=== PATIENT | male | born 1990 | race Two or more races ===

== ENCOUNTER → 2024-12-11 | Outpatient (CLI) | payer OTHER ==
--- NOTE | 2024-12-11 16:41 | HMCSR ---
APPROVED REPORT EXAM: Two-dimensional and M-mode echocardiogram with Doppler and color Doppler. 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 2D Dimensions RVDd3.8 cmLVEF(%)80.4 (>50%)LVED Vol(simp.)81.0 mL IVSd2.1 (0.7-1.1cm)FS(%)49 %LVES Vol(simp.)25.0 mL LVDd4.1 (3.8-5.6cm)LA (2D)3.7 (1.6-4.0cm)LVEF(%, simp.)70 % PWd1.3 (0.7-1.1cm)Ao Root(2D)3.7 (2.0-3.7cm)LA ESV INDEX (BP)40.36 mL/m2 IVSs2.4 cmLVOT diam2.3 (1.8-2.4cm) LVDs2.1 (2.5-4.0cm)IVC diam1.5 cm PWs1.8 cm M-Mode Dimensions EPSS0.3 cm LA (MM)4.4 (1.6-4.0cm) Ao Root(MM)3.0 (2.0-3.7cm) Aortic Valve AoV Vmax1.4 m/Awilda Peak GR7.6 mmHgLVOT Vmax1.3 m/s AoV VTI0.2 mAo Mean GR4.9 mmHgLVOT VTI0.23 m ELI (VMAX)3.82 cm2AVA (VTI) 3.8 cm2 Mitral Valve MV E Vmax53.1 cm/sDECEL Wcnl769 ms MV A Vmax30.6 cm/sP 1/2 T57 ms E/A ratio1.7MVA (PHT)3.9 cm2 TDI E/E' Medial7.8E/E' Lateral7.1 Medial E' Peak V6.79 cm/sLateral E' Peak V7.43 cm/s Pulmonary Valve PV Vmax1.1 m/sPV VTI0.21 mPV Mean GR2.7 mmHg PV Peak GR4.9 mmHgPI End Ce. Willi 92.8 cm/s Tricuspid Valve TR Vmax1.9 m/sRVSP14.5 mmHg TR Peak GR15.2 mmHg Left Ventricle The left ventricle is normal size. There is normal LV segmental wall motion. Severe concentric left v entricular hypertrophy. The LVEF is > 65%. Indeterminate diastolic dysfunction. Right Ventricle The right ventricle is normal size. The right ventricular systolic function is normal. Atria The left atrium is mildly dilated. Cannot exclude PFO by color doppler. The right atrium size is norm al. Aortic Valve The aortic valve is normal in structure. No aortic regurgitation is present. There is no aortic valvu lar stenosis. Mitral Valve The mitral valve is normal in structure and function. There is trace of mitral valve regurgitation no alena. There is no mitral valve stenosis. Tricuspid Valve The tricuspid valve is normal in structure. There is mild of tricuspid valve regurgitation noted. Pulmonic Valve Pulmonic valve is not well visualized. There is trace of pulmonic valvular regurgitation. Great Vessels The aortic root is normal in size. The IVC is normal in size and collapses >50% with inspiration. Pericardium There is no pericardial effusion. Other Information Quality : Adequate Conclusion The left ventricle is normal size. The LVEF is > 65% with normal LV segmental wall motion. Severe concentric left ventricular hypertrophy. Indeterminate diastolic dysfunction. The right ventricular systolic function is normal. The left atrium is mildly dilated. No hemodynamically significant valvular abnormalities. There is no pericardial effusion.
== END | disposition home or self-care (01) ==
LOC: RAH 14:34 → EEVIPCON 14:34
PROVIDERS: ATTEND Physical Medicine & Rehabilitation
DX: I07.1 Rheumatic tricuspid insufficiency (principal); I42.2 Other hypertrophic cardiomyopathy; Z11.3 Encounter for screening for infections with a predominantly sexual mode of transmission; Z00.01 Encounter for general adult medical examination with abnormal findings
CPT/HCPCS: 93306